=== PATIENT | female | born 1995 | race African-American/Black ===

== ENCOUNTER 2017-03-13 03:43 | Emergency (ER) | payer OTHER ==
[~2017-03-13] VITALS: Ht 180.3 cm; Wt 88.0 kg
[~2017-03-13 03:43] MED LIST: PREN-55 PO
[2017-03-13 03:49] VITALS: BP 91/61
== END 2017-03-13 08:43 | disposition left against medical advice (07) ==
LOC: ER 03:43
DX: H57.8 Other specified disorders of eye and adnexa (principal); Z53.21 Procedure and treatment not carried out due to patient leaving prior to being seen by health care provider